=== PATIENT | male | born 1970 | race Caucasian/White ===

== ENCOUNTER 2019-09-30 20:10 | Emergency (ER) | payer OTHER ==
[~2019-09-30] VITALS: Ht 170.2 cm; Wt 65.8 kg
[2019-09-30] MEDS ORDERED: BUPR8TAB4 SL (20:35)
[2019-09-30] MEDS ORDERED: TEST100V5 IM (20:35)
--- NOTE | 2019-09-30 20:44 | NUR ---
VESTA PATEL at [facility] for MSE
--- NOTE | 2019-09-30 20:47 | NUR ---
Patient alert and oriented x 4. able to make needs known. patient complaints of two large abcesses on lefta nd right chest, s/p drug usage via IV injection, two large red [place] shaped abcesses noted near leftand right scapulas, erythema localized in the general area, area warm to touch.
--- NOTE | 2019-09-30 20:49 | NUR ---
Patient discharged to home in stable condition. Patient ambulated by self. Rx given. Written and verbal after care instructions given. Patient verbalizes understanding of instructions. Stressed follow up or return to ER for worsening s/s.
[2019-09-30 21:21] VITALS: BP 119/72
== END 2019-09-30 20:49 | disposition home or self-care (01) ==
LOC: ER 20:10
DX: L08.9 Local infection of the skin and subcutaneous tissue, unspecified (principal); S21.132A Puncture wound without foreign body of left front wall of thorax without penetration into thoracic cavity, initial encounter; S21.131A Puncture wound without foreign body of right front wall of thorax without penetration into thoracic cavity, initial encounter; X78.8XXA Intentional self-harm by other sharp object, initial encounter; Y93.89 Activity, other specified; Y92.89 Other specified places as the place of occurrence of the external cause; M79.81 Nontraumatic hematoma of soft tissue; T38.7X5A Adverse effect of androgens and anabolic congeners, initial encounter
CPT/HCPCS: A4663

== ENCOUNTER 2019-10-08 20:40 | Emergency (ER) | payer OTHER ==
[~2019-10-08] VITALS: Ht 170.2 cm; Wt 65.8 kg
[~2019-10-08 20:40] MED LIST: BUPR8TAB4 SL; TEST100V5 IM
--- NOTE | 2019-10-08 20:48 | NUR ---
Dr. Hendrickson [place] at Room 4A [place] [facility] [place]
[2019-10-08] MEDS: METRONIDAZOLE 500 MG/NS 100 ML PIGGYBACK IV ONE (21:25)
[2019-10-08] MEDS ORDERED: METRONIDAZOLE 500 MG/NS 100ML 100 ML IV ONE (21:27)
[2019-10-08 21:28] LABS: BASOPHILS # (AUTO) 0.1 K/uL (0.0-8.0); BASOPHILS % (AUTO) 0.7 % (0.0-2.0); EOSINOPHILS # (AUTO) 0.2 K/uL (0.0-0.7); EOSINOPHILS % (AUTO) 3.4 % (0.0-7.0); HEMATOCRIT 48.2 % (36.7-47.1); HEMOGLOBIN 15.7 g/dL (12.5-16.3); LYMPHOCYTES # (AUTO) 1.9 K/uL (20.0-40.0); LYMPHOCYTES % (AUTO) 25.8 % (20.5-51.5); MEAN CORPUSCULAR HEMOGLOBIN 31.1 uug (23.8-33.4); MEAN CORPUSCULAR HGB CONC 33 g/dL (32.5-36.3); MEAN CORPUSCULAR VOLUME 95.3 fL (73.0-96.2); MONOCYTES # (AUTO) 0.8 K/uL (2.0-10.0); MONOCYTES % (AUTO) 10.6 % (0.0-11.0); NEUTROPHILS # (AUTO) 4.3 K/uL (1.8-8.9); NEUTROPHILS % (AUTO) 59.5 % (38.5-71.5); PLATELET COUNT (AUTO) 285 K/uL (152-348); RED BLOOD CELL COUNT(AUTO) 5.06 MIL/uL (4.06-5.63); WHITE BLOOD COUNT (AUTO) 7.2 K/uL (3.6-10.2)
[2019-10-08] MEDS ORDERED: VANCOMYCIN IV 200 ML ONE (21:28)
[2019-10-08 21:30] LABS: CREATININE 1.6 mg/dL (0.6-1.3); POTASSIUM 3.9 mmol/L (3.5-5.1)
[2019-10-08 21:36] LABS: BILIRUBIN,DIRECT 0.1 mg/dL (0.0-0.2); BILIRUBIN,TOTAL 0.3 mg/dL (0.2-1.0); TOTAL PROTEIN, SERUM 7.2 g/dL (6.4-8.2)
[2019-10-08] MEDS: VANCOMYCIN IV 1,000 MG in IV DEXTROSE 5% 250 ML IV ONE (21:43)
--- NOTE | 2019-10-08 22:00 | NUR ---
Per MD, patient has no Rx to current atb running, therefore it is okay to give Vanco over an hour.
[2019-10-08 22:50] VITALS: BP 120/63
--- NOTE | 2019-10-08 22:51 | NUR ---
Patient discharged to home in stable condition. Written and verbal after care instructions given. Patient verbalizes understanding of instructions. Stressed follow up and return tomorrow for surgical consult, possible admission. IV removed. Catheter intact and site benign. Pressure and 4x4 gauze applied to site. No bleeding noted. Ambulated out of ER in steady gait.
== END 2019-10-08 22:52 | disposition home or self-care (01) ==
LOC: ER 20:42
DX: L02.213 Cutaneous abscess of chest wall (principal); R60.0 Localized edema; N28.9 Disorder of kidney and ureter, unspecified; F17.290 Nicotine dependence, other tobacco product, uncomplicated
CPT/HCPCS: 36415; 71045; 80048; 80076; 85025; 85730; 87040 ×2; 87426; 96365; 96375; 99284; 99406; J3370; J3490; A4663; J7030

== ENCOUNTER 2019-10-09 10:55 | Emergency (ER) | payer OTHER ==
[~2019-10-09] VITALS: Ht 162.6 cm; Wt 80.7 kg
--- NOTE | 2019-10-09 11:00 | NUR ---
Dr. Overton at bedside for MSE
[2019-10-09] MEDS ORDERED: LIDOCAINE HCL 2% 20 ML VIAL ONE (11:14)
--- NOTE | 2019-10-09 11:35 | NUR ---
Patient discharged to home in stable condition. Written and verbal after care instructions given. Patient verbalizes understanding of instructions. Stressed follow up or return to ER for worsening s/s. Patient ambulating with steady gait. No active bleeding noted. NAD noted
[2019-10-09 11:39] VITALS: BP 131/82
[2019-10-09] MEDS ORDERED: LIDOCAINE HCL 2% 20 ML VIAL IJ ONE (11:45)
== END 2019-10-09 11:35 | disposition home or self-care (01) ==
LOC: ER 10:55
DX: L02.213 Cutaneous abscess of chest wall (principal); F17.200 Nicotine dependence, unspecified, uncomplicated
CPT/HCPCS: 10060; 99282; J3490; A4663